=== PATIENT | male | born 1955 | race Caucasian/White ===

== ENCOUNTER → 2016-10-22 | Outpatient (CLI) | payer BC ==
[2016-10-22 12:24] LABS: ALT/SGPT 41 U/L (12-78); BLOOD UREA NITROGEN 10 mg/dl (7-18); CALCIUM 9.2 mg/dl (8.5-10.1); CARBON DIOXIDE 29 mmol/L (21-32); CHLORIDE 109 mmol/L (98-107); GLUCOSE 103 mg/dl (70-99); POTASSIUM 4.3 mmol/L (3.5-5.1); SODIUM 142 mmol/L (136-145)
[2016-10-22 12:29] LABS: ALB/GLOB RATIO 1.2 (0.9-2); ALKALINE PHOSPHATASE 97 U/L (45-117); AST/SGOT 54 U/L (15-37); ESTIMATED AVERAGE GLUCOSE 131 mg/dl; HA1C FLAG Normal (Normal); PROSTATE SPECIFIC ANTIGEN 0.447 ng/ml (0.000-4.000)
[2016-10-22 12:44] LABS: HEMATOCRIT 47.6 % (42-52); MEAN CORPUSCULAR HEMOGLOBIN 32.4 pg (25-34); MEAN CORPUSCULAR HGB CONC 32.8 g/dl (32-36); MEAN PLATELET VOLUME 10.2 fL (7.4-10.4); PLATELET COUNT 228 K/uL (130-400); RED BLOOD COUNT 4.81 M/uL (4.7-6.1); WHITE BLOOD COUNT 6.24 K/uL (4.8-10.8)
[2016-10-22 12:46] LABS: BASO % 0.2 %; BASO ABS # 0.01 K/uL (0-0.2); COMPLETE YES; EOS % 3.5 %; IG% 0.3 %; LYMPH % 9.8 %; LYMPH ABS # 0.61 K/uL (1.2-3.4); MONO % 11.5 %; NEUT % 74.7 %
== END | disposition home or self-care (01) ==
LOC: C.LABBFT 07:29
PROVIDERS: ATTEND Internal Medicine
DX: E11.9 Type 2 diabetes mellitus without complications (principal); Z12.5 Encounter for screening for malignant neoplasm of prostate

== ENCOUNTER → 2017-01-22 | Outpatient (CLI) | payer BC ==
--- NOTE | 2017-01-22 11:44 | DIAGNOSTIC IMAGING REPORT ---
R FOOT MIN 3 VIEWS ROUTINE HISTORY: 62 years-old Male FOOT PAIN - PLEASE FAX RESULTS!!! Acute right foot pain, most pronounced medially for 3 days. History of gout. Recent fall. COMPARISON: None available TECHNIQUE: 3 views of the right foot FINDINGS: Mild periarticular osteopenia. Mild first MTP joint osteoarthritis. No acute fracture or dislocation. Moderate sized plantar enthesophyte. Vascular calcifications. Moderate soft tissue swelling about the foot, most pronounced within the medial forefoot and midfoot. IMPRESSION: 1. Moderate soft tissue swelling, most pronounced throughout the forefoot and midfoot medially without acute fracture or dislocation. 2. No definite evidence of gout arthropathy. 3. Degenerative changes as above. 4. Peripheral vascular disease. The above report was generated using voice recognition software. It may contain grammatical, syntax or spelling errors. Electronically signed by: Priyank Jaramillo M.D. 01/22/2017 11:43 AM Dictated Date/Time: 01/22/2017 11:40 AM
== END | disposition home or self-care (01) ==
LOC: C.RAD 11:13
PROVIDERS: ATTEND Physician Assistant Medical
DX: M79.671 Pain in right foot (principal); M79.89 Other specified soft tissue disorders; M89.8X7 Other specified disorders of bone, ankle and foot; I73.9 Peripheral vascular disease, unspecified